=== PATIENT | male | born 1965 | race Caucasian/White ===

== ENCOUNTER → 2018-04-09 | Outpatient (REF) | payer OTHER | LOC: M SFHCLERA 12:02 | DX: J02.9 Acute pharyngitis, unspecified (principal) ==

== ENCOUNTER → 2018-05-08 | Outpatient (REF) | payer OTHER ==
[2018-05-08 19:43] LABS: APPEARANCE, URINE CLEAR (CLEAR); BACTERIA, URINE AUTO NEGATIVE (NEGATIVE); BILIRUBIN, URINE AUTO NEGATIVE (NEGATIVE); BLOOD, URINE BLOOD NEGATIVE (NEGATIVE); COLOR, URINE YELLOW (YELLOW); GLUCOSE, URINE (UA) AUTO NEGATIVE (NEGATIVE); KETONE, URINE AUTO TRACE mg/dL (NEGATIVE); LEUKOCYTE ESTERASE, URINE AUTO NEGATIVE (NEGATIVE); NITRITE, URINE AUTO NEGATIVE (NEGATIVE); PROTEIN, URINE AUTO NEGATIVE (NEGATIVE); RBC, URINE AUTO 0 /HPF (0-3); SPECIFIC GRAVITY URINE AUTO 1.019 (1.002-1.035); SQUAMOUS EPITHELIAL CELL UR AU 0 /HPF (0-6); UROBILINOGEN, URINE AUTO 0.2 mg/dL (0.0-2.0); WBC, URINE AUTO 3 /HPF (0-3)
== END ==
LOC: M SMT 17:27
DX: N20.0 Calculus of kidney (principal)

== ENCOUNTER → 2018-11-01 | Outpatient (CLI) | payer OTHER ==
[~2018-11-01] MED LIST: AMBI10TA PO; ATOR1TAB21 PO; BACL1TAB8 GT; METF-839 PO; VITA100067 PO; ZOLO100T PO
[2018-11-01 20:19] LABS: ALBUMIN 4.3 GM/DL (3.2-5.2); ALT/SGPT 41 U/L (12-78); BILIRUBIN,TOTAL 1.2 MG/DL (0.2-1.0); BLOOD UREA NITROGEN 22 MG/DL (7-18); CALCIUM LEVEL 8.7 MG/DL (8.5-10.1); CARBON DIOXIDE LEVEL 28 MEQ/L (21-32); CHLORIDE LEVEL 105 MEQ/L (98-107); GLOMERULAR FILTRATION RATE > 60.0 (>56); GLUCOSE, FASTING 166 MG/DL (70-100); POTASSIUM SERUM 4.1 MEQ/L (3.5-5.1); SODIUM LEVEL 138 MEQ/L (136-145); TOTAL PROTEIN 7.1 GM/DL (6.4-8.2)
[2018-11-01 20:37] LABS: BASO # 0.1 10^3/uL (0.0-0.2); BASO % 0.9 % (0.0-1.0); EOS # 0.1 10^3/uL (0.0-0.50); HEMATOCRIT 42.7 % (42.0-52.0); HEMOGLOBIN 14.4 g/dl (13.5-17.5); LYMPH # 1.6 10^3/uL (1.5-4.5); LYMPH % 29.2 % (24.0-44.0); MEAN CORPUSCULAR HEMOGLOBIN 29.1 pg (27.0-33.0); MEAN CORPUSCULAR HGB CONC 33.7 g/dl (32.0-36.5); MEAN CORPUSCULAR VOLUME 86.4 fl (80.0-96.0); MONO # 0.4 10^3/uL (0.0-0.8); MONO % 6.9 % (0.0-5.0); NEUTROPHILS # 3.3 10^3/uL (1.8-7.7); NEUTROPHILS % 60.6 % (36.0-66.0); PLATELET COUNT, AUTOMATED 226 10^3/uL (150-450); RED BLOOD COUNT 4.94 10^6/uL (4.30-6.10); WHITE BLOOD COUNT 5.5 10^3/uL (4.0-10.0)
== END ==
LOC: M LRY 17:02
PROVIDERS: ATTEND Podiatrist
DX: Z01.812 Encounter for preprocedural laboratory examination (principal); M20.10 Hallux valgus (acquired), unspecified foot

== ENCOUNTER → 2018-11-06 | Outpatient (CLI) | payer OTHER ==
--- NOTE | 2018-11-06 18:50 | ECGEPIP ---
Stationary ECG Study [facility] Test Date: 2018-11-06 Pat Name: RENA LARRY Department: Room: - Gender: M Cable Installer Repairer: : 1965 Requested By: Steve Holt Order Number: [id number] Reading MD: Iam Francis Measurements Intervals [place] Rate: 72 P: 44 [place]: 172 QRS: 11 QRSD: 100 T: 12 QT: 374 QTc: 409 Interpretive Statements SINUS RHYTHM NO PRIOR Electronically Signed On 11-06-2018 18:49:50 EDT by Iam Francis
== END ==
LOC: M EKG 15:59
PROVIDERS: ATTEND Podiatrist
DX: Z01.818 Encounter for other preprocedural examination (principal); M79.672 Pain in left foot; M20.12 Hallux valgus (acquired), left foot

== ENCOUNTER 2018-11-10 06:04 | Day surgery (SDC) | payer OTHER ==
[~2018-11-10] VITALS: Ht 175.3 cm; Wt 103.8 kg
[~2018-11-10 06:04] MED LIST changes: +LIDOCAINE 1% MDV 20ML VIAL SQ PRN
[2018-11-10] MEDS ORDERED: BUPIVACAINE HCL 0.5% 30 ML VIAL As Ordered ONE (06:38)
[2018-11-10] MEDS ORDERED: LIDOCAINE 2% MDV 20 ML VIAL As Ordered ONE (06:38)
[2018-11-10] MEDS ORDERED: dexameTHASONE 4 MG/ML 1ML VIAL (J1100) As Ordered ONE (06:39)
[2018-11-10] MEDS ORDERED: BACITRACIN PWD 50,000 UNITS VIAL As Ordered ONE (06:39)
[2018-11-10] MEDS ORDERED: NEOSPORIN GU IRRIG 20 ML VIAL As Ordered ONE (06:40)
[2018-11-10] MEDS ORDERED: ONDANSETRON 4MG/2ML VIAL (J2405) As Ordered ONE (06:49)
[2018-11-10] MEDS ORDERED: PROPOFOL 500 MG/50 ML VIAL As Ordered ONE (06:49)
[2018-11-10] MEDS ORDERED: LIDOCAINE 2% INJ 100 MG/5 ML SDV (FOR ANES.) As Ordered ONE (06:49)
[2018-11-10] MEDS ORDERED: PROPOFOL 200 MG/20 ML VIAL As Ordered ONE (06:54)
[2018-11-10] MEDS ORDERED: MIDAZOLAM INJ 2 MG/2 ML VIAL (J2250) As Ordered ONE (06:55)
[2018-11-10] MEDS ORDERED: fentaNYL 100 MCG/2 ML INJECTION (J3010) As Ordered ONE (06:55)
[2018-11-10] MEDS ORDERED: LR 1,000 ML IV ONE (07:00)
--- NOTE | 2018-11-10 08:48 | RO ---
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 SURGEON: Steve Holt DPM PRIMER INSERTING MACHINE ADJUSTER: None. ANESTHESIA: Local monitored anesthesia care (MAC). IRRIGATION: Dilute bacitracin, neomycin and polymyxin B solution. HEMOSTASIS: Ankle pneumatic tourniquet at 250 millimeters of mercury for 29 minutes. HARDWARE UTILIZED: Arthrex headless screw, 3.0 x 22 mm. DESCRIPTION OF PROCEDURE: On 11/10/2018, this 53-year-old male was taken from her hospital room to the operating room and placed on the operating table in supine position. Following the induction of IV sedation and local and regional anesthesia, the left lower extremity was prepped and draped in the usual aseptic manner. Attention was directed to the patient's left foot. After the ankle pneumatic tourniquet was rapidly inflated and the following procedure was performed: LING BUNIONECTOMY WITH INTERNAL SCREW FIXATION, ARTHREX HEADLESS 3.0 x 22 mm SCREW, LEFT FOOT: Attention was directed to the patients left foot where there was noted to be a hallux valgus deformity. At this time a 5 cm incision was placed over the first metatarsophalangeal joint medial to the extensor tendon. The incision was deepened through subcutaneous tissues and all coursing venous tributaries were identified, underscored, clamped, cut, ligated and electrocoagulated as necessary. A linear capsulotomy was then performed in the same plane as the original skin incision. The capsule and periosteal structures were then dissected free in one continuous layer dorsally, medially and laterally, thus creating a capsule and periosteal type envelope. This put into view the hypertrophied medial eminence of the first metatarsal, which was osteotomized from distal to proximal, exiting medial to the sesamoidal groove. This was extirpated from the wound in toto. Dissection was carried into the first intermetatarsal space where dissection was carried down to the level of the fibular sesamoid. The fibular suspensory ligament was then transected and the conjoined tendon was sharply dissected free off the fibular sesamoid. This released the sesamoid in the lateral interspace. Attention was directed to the medical surface of the foot where an offset V was created with a long plantar and short dorsal wing. The osteotomy was noted in distal metaphysis of the first metatarsal. Following completion of the osteotomy, capital fragment was transposed approximately 40% of the width of the shaft of the first metatarsal and fixated with a 3.0 x 22 mm headless compression screw. The osteotomy was then stable in all three cardinal planes. The redundant cortical spike was then osteotomized from dorsal to plantar through and through. The medial surface was rasped to a smooth contour. The wound was flushed with copious amounts of dilute bacitracin, neomycin, and polymyxin B solution. Attention was directed towards closure where the capsular structures were coapted and maintained utilizing #2-0 Monocryl in a simple interrupted type fashion. Skin incisions were coapted and maintained utilizing #4-0 Monocryl in a simple interrupted type fashion. The skin incision was coapted and maintained utilizing #5-0 Monocryl in a continuous subcuticular type fashion. This was additional reinforced with Steri-Strips. Following the completion of the surgical procedure, an injection of dexamethasone sodium phosphate with 0.5 mL of 0.5% Marcaine was instilled proximal to the surgical site. Attention was then directed towards bandaging where a sterile compressive bandage was applied consisting of Adaptic, 4x4s, 4x4 splints, Vida and Kerlix. The ankle pneumatic tourniquet was rapidly deflated and instantaneous capillary filling time was noted in digits 1-5 of the patient's left foot. The patient, apparently having tolerated the procedure well, was taken from the operating room to the recovery room for further monitoring by the anesthesia department. Postoperative instructions given upon discharge.
[2018-11-10 10:00] VITALS: BP 128/71
--- NOTE | 2018-11-10 13:03 | REP ---
Left foot: Three views. History: Postop. Findings: Three views of the left foot obtained through overlying dressing material demonstrate that the patient is status post first metatarsal bunion repair. A metallic screw is seen across the distal first metatarsal osteotomy. There is overlying soft tissue swelling. A plantar calcaneal spur is noted. 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 Electronically Signed by Choco Scott MD 11/10/2018 06:27 P
== END 2018-11-10 10:40 | disposition home or self-care (01) ==
LOC: M SDC 06:04
PROVIDERS: ATTEND Podiatrist
DX: M20.12 Hallux valgus (acquired), left foot (principal); Q66.21 Congenital metatarsus primus varus; E11.9 Type 2 diabetes mellitus without complications; Z79.899 Other long term (current) drug therapy
CPT/HCPCS: 28296; 73630; 76000; 88300; 97116; 97530; C1713; J0690; J1100; J2250; J2405; J3010

== ENCOUNTER → 2019-07-09 | Outpatient (CLI) | payer OTHER ==
[~2019-07-09] MED LIST changes: -LIDOCAINE 1% MDV 20ML VIAL SQ PRN; +PROHANCE 279.3MG/ML 15ML VIAL (A9576) As Ordered ONE; +PROHANCE 279.3MG/ML 5ML VIAL (A9576) As Ordered ONE
--- NOTE | 2019-07-10 08:25 | REP ---
INDICATION: Follow-up, lipomatous neoplasm. PROCEDURE: MRI of the neck with contrast. Axial and coronal T1 and T2-weighted images, inversion recovery images are obtained. COMPARISON STUDIES: MR soft tissue neck 01/02/2015 FINDINGS: Again seen s a localized elliptical shaped expansion of the subcutaneous fat layer in the right neck at the level of the inferior aspect of the right parotid gland. This is compatible with a small benign lipoma. No capsule is appreciated. As noted on the comparison study, the area in question measures roughly 2.4 cm in greatest diameter, unchanged. No other soft tissue mass is seen. The parotid and submandibular glands are normal and symmetric. No adenopathy is seen. No vascular abnormality is observed. Floor of mouth structures are unremarkable. No bony lesion is seen in the mandible, maxilla or visualized cervical spine. Thyroid lobes are unremarkable. IMPRESSION: Again seen regional expansion of the subcutaneous fat layer in the right neck consistent with unencapsulated benign lipoma. No definite change from previous. No other evidence of soft tissue mass seen. No adenopathy noted. Electronically Signed by Asim Zhang MD 07/10/2019 08:17 A
== END ==
LOC: M RAD 16:50
PROVIDERS: ATTEND Plastic Surgery Surgery of the Hand
DX: D17.0 Benign lipomatous neoplasm of skin and subcutaneous tissue of head, face and neck (principal)
CPT/HCPCS: 70543; A9576

== ENCOUNTER → 2019-09-26 | Outpatient (CLI) | payer OTHER ==
[~2019-09-26] MED LIST changes: -PROHANCE 279.3MG/ML 15ML VIAL (A9576) As Ordered ONE; -PROHANCE 279.3MG/ML 5ML VIAL (A9576) As Ordered ONE
[2019-09-26 16:30] LABS: CHOLESTEROL LEVEL 236 MG/DL (<200); CHOLESTEROL RISK RATIO 5.619 (<5); GLUCOSE, FASTING 260 MG/DL (70-100); HDL CHOLESTEROL 42 MG/DL (>40); NON-HDL-C 194 MG/DL; TRIGLYCERIDES LEVEL 541 MG/DL (<150)
[2019-09-26 17:02] LABS: HEMOGLOBIN A1c 8.9 %
== END ==
LOC: M WUC 11:35
PROVIDERS: ATTEND Physician Assistant
DX: E11.9 Type 2 diabetes mellitus without complications (principal); E55.9 Vitamin D deficiency, unspecified

== ENCOUNTER 2020-05-22 12:43 | Emergency (ER) | payer OTHER ==
[~2020-05-22] VITALS: Ht 175.3 cm; Wt 98.4 kg
[2020-05-22 12:43] VITALS: BP 118/87
[2020-05-22] MEDS ORDERED: INVO300T (12:48)
[2020-05-22] MEDS ORDERED: ZOLP10TA2 (12:48)
[2020-05-22] MEDS ORDERED: AMOX500C PO (13:54)
[2020-05-22] MEDS ORDERED: AMOXICILLIN 500 MG CAP PO ONE (14:00)
[2020-05-22 14:13] LABS: INFLUENZA A AMPLIFICATION NEGATIVE (NEGATIVE); INFLUENZA B AMPLIFICATION NEGATIVE (NEGATIVE)
== END 2020-05-22 14:12 | disposition home or self-care (01) ==
LOC: EEVIPCON 12:43 → M ED 12:43
DX: J02.0 Streptococcal pharyngitis (principal); R51.9 Headache, unspecified; R05 Cough; R42 Dizziness and giddiness; M79.10 Myalgia, unspecified site; E78.5 Hyperlipidemia, unspecified; Z79.899 Other long term (current) drug therapy
CPT/HCPCS: 87631; 87880; 99283; U0003

== ENCOUNTER → 2020-08-21 | Outpatient (CLI) | payer OTHER ==
[~2020-08-21] MED LIST changes: +AMOX500C PO; +INVO300T PO; +JANU100T14 PO; +ZOLP10TA2 PO
== END ==
LOC: M LABSMTC 10:50
PROVIDERS: ATTEND Anesthesiology
DX: Z01.812 Encounter for preprocedural laboratory examination (principal); Z20.822 Contact with and (suspected) exposure to COVID-19

== ENCOUNTER 2020-08-26 08:50 | Day surgery (SDC) | payer OTHER ==
[~2020-08-26] VITALS: Ht 175.3 cm; Wt 101.1 kg
[~2020-08-26 08:50] MED LIST changes: +ACETAMINOPHEN 1000MG 100ML IV BTL (OFIRMEV) (J0131 PER 10MG) As Ordered ONE; +KETOROLAC 60MG 2ML VIAL As Ordered ONE; +LIDOCAINE 2% 100MG/5ML SDV (FOR ANES.) As Ordered ONE; +LR 1,000 ML IV ONE; +MIDAZOLAM INJ 2MG/2ML VIAL (J2250 PER 1MG) As Ordered ONE; +ONDANSETRON 4MG/2ML VIAL As Ordered ONE; +ROCURONIUM BROMIDE 50 MG/5 ML VIAL As Ordered ONE; +dexameTHASONE 4 MG/ML 1ML VIAL (J1100 PER 1MG) As Ordered ONE; +fentaNYL 250 MCG/5 ML INJECTION (J3010) As Ordered ONE; +propofoL 200 MG/20 ML VIAL As Ordered ONE
[2020-08-26] MEDS ORDERED: HumaLOG INSULIN (NovoLOG) PER UNIT As Ordered ONE (09:33)
[2020-08-26] MEDS ORDERED: BUPIVACAINE LIPOSOME/PF 1.3% 20ML VIAL (13.3MG/ML)(EXPAREL)(C9290 PER1MG) As Ordered ONE (09:45)
[2020-08-26] MEDS ORDERED: BUPIVACAINE HCL 0.25% 30ML VIAL As Ordered ONE (09:45)
[2020-08-26] MEDS ORDERED: HumaLOG INSULIN (NovoLOG) PER UNIT SC ONE (09:55)
[2020-08-26] MEDS ORDERED: HYDR-3715 PO (10:04)
[2020-08-26] MEDS ORDERED: propofoL 200 MG/20 ML VIAL As Ordered ONE (10:31)
[2020-08-26] MEDS ORDERED: SUGAMMADEX SODIUM 500 MG/5 ML VIAL (BRIDION) As Ordered ONE (10:32)
[2020-08-26] MEDS ORDERED: ePHEDrine SULFATE 25 MG/5 ML(5MG/ML) SYRINGE As Ordered ONE ×2 (10:36→10:51)
[2020-08-26] MEDS ORDERED: METOCLOPRAMIDE INJ 10MG/2ML VIAL (J2765 PER 1) As Ordered ONE (10:38)
[2020-08-26 11:55] VITALS: BP 135/90
[2020-08-26] MEDS ORDERED: oxyCODONE 5MG TAB PO PRN (12:00)
[2020-08-26] MEDS ORDERED: LR 1,000 ML IV SCH (12:00)
[2020-08-26] MEDS ORDERED: fentaNYL 100 MCG/2 ML INJECTION (J3010) IV PRN (12:00)
[2020-08-26] MEDS ORDERED: ONDANSETRON 4MG/2ML VIAL IV PRN (12:00)
[2020-08-26] MEDS ORDERED: METOCLOPRAMIDE INJ 10MG/2ML VIAL (J2765 PER 1) IV PRN (12:00)
[2020-08-26] MEDS ORDERED: NORCO, ANEXSIA 5/325MG TABLET (HYDROcodone/ACETAMINOPHEN) PO PRN (12:05)
[2020-08-26] MEDS ORDERED: ACETAMINOPHEN TAB 650MG DOSE (2X325MG) PO PRN (12:05)
[2020-08-26] MEDS ORDERED: IBUPROFEN 600MG TAB PO PRN (12:05)
--- NOTE | 2020-08-27 12:50 | RO ---
OPERATIVE NOTE DATE OF OPERATION: 08/26/2020 PREOPERATIVE DIAGNOSIS: Umbilical hernia. POSTOPERATIVE DIAGNOSIS: Umbilical hernia. PROCEDURE PERFORMED: Open umbilical herniorrhaphy. SURGEON: Carlos Fung MD ANESTHESIA: General. INDICATIONS FOR THE PROCEDURE: The patient is a 54-year-old man with a small umbilical hernial bulge, which is reducible. He has noticed increasing discomfort at the hernia. The fascial defect is estimated at perhaps a centimeter in size and he is now for an open repair of his umbilical hernia. OPERATIVE PROCEDURE: The patient was brought to the operating room and placed on the table in a supine position. He was placed under general endotracheal anesthesia. The patient's abdomen was prepped and draped in a sterile fashion. Initially an approximately 3 cm slightly curved transverse supraumbilical skin incision was made. This was deepened into the subcutaneous tissues. The hernia sac was identified and the sac was approximately 1-1/2 to at most 2 cm in diameter. This was peeled off of the overlying skin and dissected free down to the fascia. The fascial defect was perhaps a centimeter to at most 1-1/2 cm in diameter. It was possible to easily reduce the intact hernia sac beneath the fascia. The fascia was cleared of overlying fibrofatty tissue for a short distance in all directions. The fascia was then closed transversely with interrupted simple sutures of 1-0 Ethibond. Inspection showed excellent hemostasis. The umbilical skin was tacked down to the underlying fascia with a 2-0 Vicryl. The skin edges were brought into apposition with buried sutures of 3-0 Vicryl and the skin edges were approximated with a running subcuticular 4-0 Vicryl. Then, 0.25% Marcaine was infiltrated widely around the wound. Steri-Strips were applied. A fluffed 2 x 2 was placed into the umbilicus and covered with additional 2 x 2's. Patient tolerated the procedure well without apparent complication. He was awakened in the Operating Room, extubated, and moved to the Recovery Room in stable condition. JADEN
== END 2020-08-26 12:35 | disposition home or self-care (01) ==
LOC: M SDC 08:50
PROVIDERS: ATTEND Surgery
DX: K42.9 Umbilical hernia without obstruction or gangrene (principal); E11.9 Type 2 diabetes mellitus without complications; F41.9 Anxiety disorder, unspecified; Z79.899 Other long term (current) drug therapy
CPT/HCPCS: 49585; J0131; J1100; J1885; J2250; J2405; J2765; J3010

== ENCOUNTER → 2020-12-17 | Outpatient (CLI) | payer OTHER ==
[~2020-12-17] MED LIST changes: -ACETAMINOPHEN 1000MG 100ML IV BTL (OFIRMEV) (J0131 PER 10MG) As Ordered ONE; +HYDR-3715 PO; -KETOROLAC 60MG 2ML VIAL As Ordered ONE; -LIDOCAINE 2% 100MG/5ML SDV (FOR ANES.) As Ordered ONE; -LR 1,000 ML IV ONE; -MIDAZOLAM INJ 2MG/2ML VIAL (J2250 PER 1MG) As Ordered ONE; -ONDANSETRON 4MG/2ML VIAL As Ordered ONE; -ROCURONIUM BROMIDE 50 MG/5 ML VIAL As Ordered ONE; -dexameTHASONE 4 MG/ML 1ML VIAL (J1100 PER 1MG) As Ordered ONE; -fentaNYL 250 MCG/5 ML INJECTION (J3010) As Ordered ONE; -propofoL 200 MG/20 ML VIAL As Ordered ONE
--- NOTE | 2020-12-17 16:45 | REP ---
INDICATION: LUMP ON NECK. COMPARISON: 07/31/2018. TECHNIQUE: Real-time sonographic evaluation of left posterior neck soft tissues performed. FINDINGS: There is an oval solid nodule measuring 3.2 x 0.8 x 2.7 cm. This appears unchanged when compared to the prior ultrasound and probably represents a lipoma. IMPRESSION: Stable solid nodule left posterior neck soft tissues probably represents a lipoma. Clinical correlation and follow-up recommended. Recommend MRI evaluation if there is clinical enlargement. <Electronically signed by Percy Javed > 12/17/20 [id number]
== END ==
LOC: M RAD 15:31
PROVIDERS: ATTEND Physician Assistant
DX: R22.1 Localized swelling, mass and lump, neck (principal)

== ENCOUNTER → 2021-03-26 | Outpatient (CLI) | payer OTHER ==
[~2021-03-26] MED LIST changes: +OZEM2INJ SC
--- NOTE | 2021-03-28 10:47 | ECGEPIP ---
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 No significant change compared with 11/06/2018. Electronically Signed on 03-28-2021 10:47:20 EDT by Max Adhikari
== END ==
LOC: M EKG 09:52
PROVIDERS: ATTEND Anesthesiology
DX: Z01.818 Encounter for other preprocedural examination (principal); E78.00 Pure hypercholesterolemia, unspecified; E11.9 Type 2 diabetes mellitus without complications

== ENCOUNTER → 2021-03-26 | Outpatient (CLI) | payer OTHER | LOC: M LABSMTC 10:00 | PROVIDERS: ATTEND Anesthesiology | DX: Z01.812 Encounter for preprocedural laboratory examination (principal); Z20.822 Contact with and (suspected) exposure to COVID-19 ==

== ENCOUNTER 2021-03-31 09:08 | Day surgery (SDC) | payer OTHER ==
[~2021-03-31] VITALS: Ht 175.3 cm; Wt 96.6 kg
[~2021-03-31 09:08] MED LIST changes: +LIDOCAINE 1% MDV 20ML VIAL SQ PRN; +LR 1,000 ML IV ONE; +ceFAZolin SOD 2 GM in IV 1 EA IV ONE
[2021-03-31] MEDS ORDERED: MIDAZOLAM INJ 2MG/2ML VIAL (J2250 PER 1MG) As Ordered ONE (10:43)
[2021-03-31] MEDS ORDERED: fentaNYL 100 MCG/2 ML INJECTION (J3010) As Ordered ONE (10:43)
[2021-03-31] MEDS ORDERED: LIDOCAINE 2% 100MG/5ML SDV (FOR ANES.) As Ordered ONE (10:43)
[2021-03-31] MEDS ORDERED: propofoL 200 MG/20 ML VIAL As Ordered ONE ×2 (10:43→12:22)
[2021-03-31] MEDS ORDERED: BUPIVACAINE/EPIN 0.25% 30 ML VIAL As Ordered ONE (11:33)
[2021-03-31] MEDS ORDERED: ONDANSETRON 4MG/2ML VIAL As Ordered ONE (12:07)
[2021-03-31] MEDS ORDERED: dexameTHASONE 4 MG/ML 1ML VIAL (J1100 PER 1MG) As Ordered ONE (12:07)
[2021-03-31] MEDS ORDERED: KETOROLAC 60MG 2ML VIAL As Ordered ONE (12:07)
[2021-03-31 13:00] VITALS: BP 115/67
--- NOTE | 2021-03-31 13:25 | RO ---
OPERATIVE NOTE DATE OF OPERATION: 03/31/2021 PREOPERATIVE DIAGNOSIS: Deep subcutaneous lipoma left neck. POSTOPERATIVE DIAGNOSIS: Possible intramuscular lipoma left neck. PROCEDURE: Left posterior neck exploration. SURGEON: Eugenio Santiago Jr., MD. SHEAR GRINDER OPERATOR: ANESTHESIA: Local plus sedation. EBL: Minimal. BRIEF PROCEDURE SUMMARY: Patient was brought to the operating room and was placed in the prone position. Patient was prepped and draped in the usual sterile fashion. While he was in the prone position, I then moved his head to slightly a left tilt to feel the lipoma which was deep to the subcutaneous tissue, and after marking this and positioning, transverse incision was made over the top of the lipoma area once local was infiltrated circumferentially. Once the local was infiltrated, I could not feel the lipomatous lesion anymore, and thus incision was made with a skin knife. Electrocautery was used to cut through skin and subcutaneous tissue down to the deeper subcutaneous tissue. Once I broke through the deep subcutaneous layer, there was some lipomatous tissue that was very friable, and I removed some of this, but it broke up quite easily, and it really was not a well defined lipoma as I expected, and palpating circumferentially I could not feel any other lipoma in deep. All I could feel were the muscle bellies of the posterior neck muscles going up to the base of the skull. I awakened the patient enough so I could have him move his neck down and in a position that would hyperextend that area to allow the lipoma to be more easily palpated, but even in doing this I still could not feel any lipomatous lesion in this area, and thus the premise was either the lipoma was much deeper and was somewhat of an intramuscular lipoma or closer to the skull base issue or possibly that flimsy fatty tissue in the deep subcutaneous tissue was the lipoma. At this time, the deep layers were closed with 3-0 Vicryl. 4-0 Vicryl was used to approximate the skin. Steri-Strips and a dry sterile dressing was applied. Patient was awakened from the sedation and brought to the recovery room awake, alert, and hemodynamically stable. Plan postoperatively to see if the lesion is still present in the postoperative visit, and if it is, then it would imply that this is much deeper in the subcutaneous tissue, and I would recommend either observation of this over time or referral to ENT for a significantly deeper neck dissection for this lipoma.
== END 2021-03-31 13:07 | disposition home or self-care (01) ==
LOC: M SDC 09:08
PROVIDERS: ATTEND Surgery
DX: D17.0 Benign lipomatous neoplasm of skin and subcutaneous tissue of head, face and neck (principal); E11.9 Type 2 diabetes mellitus without complications; E78.5 Hyperlipidemia, unspecified; Z79.899 Other long term (current) drug therapy
CPT/HCPCS: 11421; J0690; J1100; J1885; J2250; J2405; J3010

== ENCOUNTER → 2021-09-24 | Outpatient (REF) | payer OTHER ==
[~2021-09-24] MED LIST changes: -LIDOCAINE 1% MDV 20ML VIAL SQ PRN; -LR 1,000 ML IV ONE; -ceFAZolin SOD 2 GM in IV 1 EA IV ONE
== END ==
LOC: M SFHCDERM 14:25
PROVIDERS: ATTEND Nurse Practitioner Family
DX: D23.5 Other benign neoplasm of skin of trunk (principal)

== ENCOUNTER → 2023-06-06 | Outpatient (CLI) | payer OTHER ==
[2023-06-06 19:34] LABS: HEMATOCRIT 45.6 % (42.0-52.0); MEAN CORPUSCULAR HEMOGLOBIN 28.9 pg (27.0-33.0); MEAN CORPUSCULAR HGB CONC 32.9 g/dl (32.0-36.5); MEAN CORPUSCULAR VOLUME 87.9 fl (80.0-96.0); PLATELET COUNT, AUTOMATED 195 10^3/uL (150-450); RED BLOOD COUNT 5.19 10^6/uL (4.30-6.10)
[2023-06-06 20:03] LABS: ALBUMIN 4.3 G/DL (3.2-5.2); ALKALINE PHOSPHATASE 71 U/L (46-116); ALT/SGPT 29 U/L (7.0-40); AST/SGOT 15 U/L (<34); BILIRUBIN,TOTAL 1.7 MG/DL (0.3-1.2); BLOOD UREA NITROGEN 26 MG/DL (9-23); CALCIUM LEVEL 9.5 MG/DL (8.5-10.1); CARBON DIOXIDE LEVEL 27 MMOL/L (20-31); CHLORIDE LEVEL 101 MMOL/L (98-107); CHOLESTEROL LEVEL 212 MG/DL (<200); CHOLESTEROL RISK RATIO 3.95 (<5); CREATININE FOR GFR 0.85 MG/DL (0.70-1.30); GLOMERULAR FILTRATION RATE > 60.0 (>56); GLUCOSE, FASTING 174 MG/DL (60-100); HDL CHOLESTEROL 53.6 MG/DL (>40); LDL CHOLESTEROL 95.6 MG/DL (<100); NON-HDL-C 158.4 MG/DL; POTASSIUM SERUM 3.7 MMOL/L (3.5-5.1); SODIUM LEVEL 137 MMOL/L (136-145); TOTAL PROTEIN 6.9 G/DL (5.7-8.2); TRIGLYCERIDES LEVEL 314 MG/DL (<150)
[2023-06-06 20:07] LABS: HEMOGLOBIN A1c 8.2 % (4.0-6.0)
== END ==
LOC: M WUC 15:29
PROVIDERS: ATTEND Physician Assistant
DX: E11.9 Type 2 diabetes mellitus without complications (principal); E78.5 Hyperlipidemia, unspecified; R35.1 Nocturia

== ENCOUNTER → 2024-10-23 | Outpatient (CLI) | payer OTHER ==
[~2024-10-23] MED LIST changes: -AMBI10TA PO; +ZOLP-533 PO
[2024-10-23 13:25] LABS: APPEARANCE, URINE CLEAR (CLEAR); BACTERIA, URINE AUTO NEGATIVE (NEGATIVE); BILIRUBIN, URINE AUTO NEGATIVE (NEGATIVE); BLOOD, URINE BLOOD NEGATIVE (NEGATIVE); COLOR, URINE YELLOW (YELLOW); GLUCOSE, URINE (UA) AUTO NEGATIVE (NEGATIVE); KETONE, URINE AUTO NEGATIVE (NEGATIVE); LEUKOCYTE ESTERASE, URINE AUTO NEGATIVE (NEGATIVE); MUCUS, URINE LARGE (NEGATIVE); NITRITE, URINE AUTO NEGATIVE (NEGATIVE); PROTEIN, URINE AUTO NEGATIVE (NEGATIVE); RBC, URINE AUTO 0 /HPF (0-3); SPECIFIC GRAVITY URINE AUTO 1.027 (1.002-1.035); SQUAMOUS EPITHELIAL CELL UR AU 0 /HPF (0-6); UROBILINOGEN, URINE AUTO 0.2 mg/dL (0.0-2.0); WBC, URINE AUTO 0 /HPF (0-3)
[2024-10-23 13:27] LABS: HEMATOCRIT 44.3 % (42.0-52.0); HEMOGLOBIN 14.8 g/dl (13.5-17.5); MEAN CORPUSCULAR HEMOGLOBIN 28.9 pg (27.0-33.0); MEAN CORPUSCULAR HGB CONC 33.4 g/dl (32.0-36.5); MEAN CORPUSCULAR VOLUME 86.5 fl (80.0-96.0); PLATELET COUNT, AUTOMATED 195 10^3/uL (150-450); RED BLOOD COUNT 5.12 10^6/uL (4.30-6.10)
[2024-10-23 13:52] LABS: PROSTATIC SPECIFIC AG MONITOR 0.35 NG/ML (< 4.00)
[2024-10-23 13:54] LABS: ALBUMIN 4.2 G/DL (3.2-5.2); ALKALINE PHOSPHATASE 77 U/L (40-129); ALT/SGPT 31 U/L (7.0-40); AST/SGOT 14 U/L (<34); BILIRUBIN,TOTAL 1.6 MG/DL (0.3-1.2); BLOOD UREA NITROGEN 24 MG/DL (9-23); CALCIUM LEVEL 9.3 MG/DL (8.5-10.1); CARBON DIOXIDE LEVEL 25 MMOL/L (20-31); CHLORIDE LEVEL 108 MMOL/L (98-107); CHOLESTEROL LEVEL 196 MG/DL (<200); CHOLESTEROL RISK RATIO 4.25 (<5); CREATININE FOR GFR 0.89 MG/DL (0.70-1.30); GLOMERULAR FILTRATION RATE > 90.0 (>56); GLUCOSE, FASTING 157 MG/DL (60-100); HDL CHOLESTEROL 46.1 MG/DL (>40); LDL CHOLESTEROL 88.1 MG/DL (<100); NON-HDL-C 149.9 MG/DL; POTASSIUM SERUM 4.1 MMOL/L (3.5-5.1); SODIUM LEVEL 140 MMOL/L (136-145); TOTAL PROTEIN 6.9 G/DL (5.7-8.2); TRIGLYCERIDES LEVEL 309 MG/DL (<150)
[2024-10-23 13:56] LABS: THYROID STIMULATING HORMONE 1.879 uIU/ML (0.55-4.78)
== END ==
LOC: M PLALAB 10:37
PROVIDERS: ATTEND Physician Assistant
DX: E11.9 Type 2 diabetes mellitus without complications (principal); E78.5 Hyperlipidemia, unspecified; R35.1 Nocturia